=== PATIENT | male | born 1975 | race Caucasian/White ===

== ENCOUNTER → 2016-11-11 | Outpatient (CLI) | payer OTHER | END | disposition disaster alternative care site (69) | LOC: GRAD 07:05 | DX: G35 Multiple sclerosis (principal); M21.379 Foot drop, unspecified foot; M47.816 Spondylosis without myelopathy or radiculopathy, lumbar region; G93.9 Disorder of brain, unspecified; R26.2 Difficulty in walking, not elsewhere classified; R93.7 Abnormal findings on diagnostic imaging of other parts of musculoskeletal system | CPT/HCPCS: A9577 ==